=== PATIENT | male | born 1990 | race African-American/Black ===

== ENCOUNTER 2017-04-06 20:09 | Emergency (ER) | payer MEDICARE, OTHER ==
[2017-04-06 20:19] VITALS: BP 118/56; PULSE 97; RESP 16
[2017-04-06] MEDS ORDERED: ACETAMINOPHEN TAB 325 MG TAB PO STA (20:50)
--- NOTE | 2017-04-06 21:10 | ED ---
URI HPI - General Chief Complaint: Upper Respiratory Infection Stated Complaint: Upper Resp Time Seen by Provider: 04/06/17 20:30 Source: patient, RN notes reviewed Mode of arrival: ambulatory Limitations: no limitations - History of Present Illness Initial Comments: This is a 26-year-old male who presents to the emergency department with chief complaint of cough and sinus pain. Patient states that he began to feel unwell this morning. He reports that she has been in contact with his girlfriend who has also been sick for the past 3 weeks. He complains of body aches, sore throat , cough productive of yellow sputum, sinus pain and fever. Denies chills, chest pain, shortness of breath, abdominal pain, nausea or vomiting, constipation or diarrhea, dysuria or hematuria, numbness or tingling, or vision changes. - Related Data Home Medications Medication Instructions Recorded Confirmed Clobazam [Onfi] 10 mg PO DAILY 03/23/15 07/11/15 OXcarbazepine [Trileptal] 600 mg PO BID 03/23/15 07/11/15 Previous Rx's Medication Instructions Recorded OXcarbazepine [Trileptal] 150 mg PO HS #30 tab 07/11/15 OXcarbazepine [Trileptal] 600 mg PO BID #60 tab 07/11/15 Allergies Allergy/AdvReac Type Severity Reaction Status Date / Time aspirin AdvReac Severe Unknown Verified 04/06/17 20:19 Review of Systems ROS Statement: Those systems with pertinent positive or pertinent negative responses have been documented in the HPI. ROS Other: All systems not noted in ROS Statement are negative. Past Medical History Past Medical History: Seizure Disorder Additional Past Medical History / Comment(s): epilepsy History of Any Multi-Drug Resistant Organisms: None Reported Past Surgical History: Orthopedic Surgery Additional Past Surgical History / Comment(s): epilepsy Past Psychological History: Depression Smoking Status: Current every day smoker Past Alcohol Use History: Occasional Past Drug Use History: None Reported General Exam - General Exam Comments Initial Comments: General: Awake and alert, well-developed; in no apparent distress. Lying on ED stretcher. HEENT: Head atraumatic, normocephalic. Pupils are equal, round and reactive to light. Extraocular movements intact. Oropharynx moist without erythema or exudate. Bilateral TMs pearly without effusion. Tenderness on palpation of maxillary and frontal sinuses. Neck: Supple. Normal ROM. No adenopathy. Cardiovascular: Regular rate and rhythm. No murmurs, rubs or gallops. Chest symmetrical. Respiratory: Lungs clear to auscultation bilaterally. No wheezes, rales or rhonchi. Normal respiratory effort with no use of accessory muscles. Abdomen: Soft, non-tender, non-distended. No rigidity, rebound or guarding. Normal bowel sounds in all 4 quadrants. Skin: Warm and dry without rashes or lesions. Neurological: Alert and oriented x3. CN II-XII grossly intact. Speech is fluent and answers are appropriate. No focal neuro deficits. Psychiatric: Normal mood and affect. No overt signs of depression or anxiety noted. Limitations: no limitations Course Vital Signs 04/06/17 20:17 Temperature 99.8 F H Pulse Rate 97 Respiratory 16 Rate Blood Pressure 118/56 O2 Sat by Pulse 97 Oximetry - Reevaluation(s) Reevaluation #1: Patient sleeping on the ED stretcher. Normal chest x-ray findings were discussed with patient. Patient wishes to be evaluated for influenza. In no acute distress at this time. 04/06/17 21:42 Medical Decision Making - Medical Decision Making This is a 26 year old male who presents to the emergency department with complaint of cough and sinus pain for one day. Chest x-ray revealed no acute abnormalities. Influenza swab was negative. Patient likely suffering from a viral upper respiratory infection. He'll be discharged home with recommendation to follow-up with primary care provider. Patient agrees to the plan and voices understanding. All questions were answered. He is in no acute distress at this time. - Lab Data Lab Results 04/06/17 Range/Units 21:50 Influenza Type A RNA Not Detected (Not Detectd) Influenza Type B (PCR) Not Detected (Not Detectd) - Radiology Data Radiology results: report reviewed Chest x-ray findings: Heart and mediastinum are normal. Lungs are clear. Diaphragm is normal. Bony thorax is intact. Impression: Normal chest. No change. Disposition Clinical Impression: Upper respiratory infection Disposition: HOME SELF-CARE Condition: Good Instructions: Upper Respiratory Infection (ED) Additional Instructions: Please follow up with primary care provider within 1-2 days. Return to emergency department if symptoms should worsen or any concerns arise. Referrals: None,Stated [Primary Care Provider] - 1-2 days Time of Disposition: 22:27
--- NOTE | 2017-04-06 21:36 | XR ---
EXAMINATION TYPE: XR chest 2V DATE OF EXAM: 04/06/2017 COMPARISON: 05/26/2015 HISTORY: Cough and congestion TECHNIQUE: Frontal and lateral views of the chest are obtained. FINDINGS: Heart and mediastinum are normal. Lungs are clear. Diaphragm is normal. Bony thorax is int act IMPRESSION: Normal chest. No change.
[2017-04-06 22:34] VITALS: TEMP 98.4
== END 2017-04-06 22:34 | disposition home or self-care (01) ==
LOC: EC 20:09
DX: J06.9 Acute upper respiratory infection, unspecified (principal); G40.909 Epilepsy, unspecified, not intractable, without status epilepticus; F17.200 Nicotine dependence, unspecified, uncomplicated; Z79.899 Other long term (current) drug therapy; Z88.6 Allergy status to analgesic agent
CPT/HCPCS: 71020; 87502; 99283